=== PATIENT | female | born 1980 | race Caucasian/White ===

== ENCOUNTER 2021-07-05 15:45 | Emergency (ER) | payer MEDICAID, OTHER ==
[~2021-07-05] VITALS: Ht 162.6 cm; Wt 109.8 kg
[2021-07-05] MEDS ORDERED: TETANUS-DIPTH-ACEL PERTUSSIS 0.5ML SYR Tdap IM ONE (17:00)
[2021-07-05] MEDS ORDERED: cefTRIAXone W LIDOCAINE 1 GM IM IM ONE (17:00)
[2021-07-05] MEDS ORDERED: AZITHROMYCIN 500MG/ 250ML 250 ML IV ONE (18:15)
[2021-07-05 19:22] LABS: Alanine Aminotransferase 28 U/L (13-56); Albumin 2.9 g/dL (3.4-5.0); Anion Gap 11 (5-15); Aspartate Aminotransferase 32 U/L (15-37); BUN/Creatinine Ratio 22.8; Basophils # (auto) 0.1 10 ^3/uL (0-0.2); Basophils % (auto) 0.8 % (0.0-2.0); Blood Urea Nitrogen 23 mg/dL (7-18); Calcium 10.2 mg/dL (8.5-10.1); Carbon Dioxide 23 mmol/L (21-32); Chloride 105 mmol/L (98-107); Eosinophils # (auto) 0.6 10 ^3/uL (0-0.8); Eosinophils % (auto) 4.1 % (0.0-7.0); GFR African American 78 mL/min; GFR Non-African American 65 mL/min; Glucose 97 mg/dL (74-106); Hematocrit 33.6 % (36.0-46.0); Hemoglobin 11.1 g/dL (12.2-16.2); Lymphocytes # (auto) 2.7 10 ^3/uL (0.4-5.4); Lymphocytes % (auto) 19.5 % (10.0-50.0); Magnesium 2.1 mg/dL (1.6-2.6); Mean Corpuscular Hemoglobin 31.7 pg (28.0-32.0); Mean Corpuscular Hgb Conc. 33.2 g/dL (32.0-36.0); Mean Corpuscular Volume 95.5 fL (80.0-100.0); Monocytes # (auto) 0.8 10 ^3/uL (0-1.3); Monocytes % (auto) 5.8 % (0.0-12.0); Neutrophils # (auto) 9.6 10 ^3/uL (1.6-8.6); Neutrophils % (auto) 69.8 % (37.0-80.0); Nucleated Red Blood Cells % 0.1 %; Potassium 3.5 mmol/L (3.5-5.1); Red Blood Cells 3.52 10^6/uL (4.0-5.20); Red Cell Distribution Width 13.1 % (11.8-14.3); Sodium 139 mmol/L (136-145); White Blood Cell 13.7 10^3/uL (4.4-10.8)
[2021-07-05 19:30] LABS: Alkaline Phosphatase 82 U/L (45-117); Bilirubin, Total 0.2 mg/dL (0.2-1.0); CRP High Sensitivity 7.52 mg/dL (< 0.3); Total Protein 7.5 g/dL (6.4-8.2)
[2021-07-05] MEDS ORDERED: IOHEXOL 300 MG/ML 100ML BOTTLE IJ ONE (21:22)
[2021-07-05] MEDS ORDERED: IOHEXOL 350 MG/ML 100ML IJ ONE (21:25)
[2021-07-06] MEDS ORDERED: ALBUTEROL SULF 2.5 MG/0.5ML(0.5%) NEB SOLN NEB PRN (02:30)
[2021-07-06] MEDS ORDERED: IPRATROPIUM BROM 0.5 MG/2.5ML INH SOL NEB PRN (02:30)
[2021-07-06 07:30] VITALS: BP 122/75
== END 2021-07-06 08:38 | disposition short-term general hospital (02) ==
LOC: ER 15:46
DX: S27.329A Contusion of lung, unspecified, initial encounter (principal); S40.022A Contusion of left upper arm, initial encounter; S09.8XXA Other specified injuries of head, initial encounter; J18.9 Pneumonia, unspecified organism; M79.18 Myalgia, other site; N83.202 Unspecified ovarian cyst, left side; R06.03 Acute respiratory distress; I10 Essential (primary) hypertension; Z88.8 Allergy status to other drugs, medicaments and biological substances; Z88.6 Allergy status to analgesic agent; Z88.2 Allergy status to sulfonamides; Z91.040 Latex allergy status; Z20.822 Contact with and (suspected) exposure to COVID-19; V49.49XA Driver injured in collision with other motor vehicles in traffic accident, initial encounter; Y93.89 Activity, other specified; Y92.488 Other paved roadways as the place of occurrence of the external cause; Y99.8 Other external cause status
CPT/HCPCS: 36415; 70450; 71046; 71260; 72125; 72192; 73090; 74177; 80053; 82728; 83605; 83735; 83880; 84484; 85025; 86141; 87040; 87426; 96365; 96366; 99285; J0456; J0696; Q9967